=== PATIENT | female | born 1995 | race Caucasian/White ===

== ENCOUNTER 2018-11-29 12:22 | Emergency (ER) | payer OTHER ==
[~2018-11-29] VITALS: Ht 157.5 cm; Wt 45.4 kg
[2018-11-29 12:50] VITALS: BP 00/00; Ht 157.5 cm; Wt 45.4 kg
== END 2018-11-29 19:14 | disposition expired ==
LOC: ED 12:22 → EDBD 12:22 → ED 19:14
DX: I46.9 Cardiac arrest, cause unspecified (principal)